=== PATIENT | female | born 1965 | race Caucasian/White ===

== ENCOUNTER → 2017-01-03 | Outpatient (CLI) | payer BC ==
[~2017-01-03] MED LIST: ALBU4TAB10 PO; AMOX500C3 PO; AMOX875T PO; BECL1AER5 NAE; BIOTIN PO; CETI10TA84 PO; CHOL1CAP51 PO; COEN1TAB3 PO; FLUO20CA35 PO; HYDR0.5T PO; MECL1TAB42 PO; MELA1TAB54 PO; MELO15TA3 PO; MISCCAP80 PO; PIRB200A INH; SERT50TA PO; VNTHFA/IN INH; ZOLM1TAB11 PO; [UNRECOGNIZED DRUG - CODE] TD; [UNRECOGNIZED DRUG - OTHER] PO
--- NOTE | 2017-01-03 12:20 | DIAGNOSTIC IMAGING REPORT ---
ULTRASOUND OF THE PELVIS CLINICAL HISTORY: Pelvic pain. COMPARISON STUDY: Pelvic CT dated 09/30/2015. TECHNIQUE: Real-time, grayscale, and color flow sonography of the pelvis is performed both transabdominally and endovaginally. Images are reviewed in the transverse and longitudinal planes. FINDINGS: Uterus: The uterus is surgically absent Ovaries: The ovaries are normal in size and morphology. The right ovary measures 2.6 x 1.0 x 1.6 cm and the left ovary measures 2.6 x 1.0 x 0.9 cm. Normal Doppler waveforms are shown within both ovaries. Pelvis: There is no free fluid in the cul-de-sac. No concerning adnexal lesion is seen. IMPRESSION: 1. The uterus is surgically absent. 2. Unremarkable sonographic assessment of the ovaries. 3. No concerning adnexal lesion is identified. Electronically signed by: Cordell Sanches M.D. 01/03/2017 12:18 PM Dictated Date/Time: 01/03/2017 12:15 PM
== END | disposition home or self-care (01) ==
LOC: C.ULTR 11:21
PROVIDERS: ATTEND Family Medicine
DX: R10.2 Pelvic and perineal pain (principal); Z80.41 Family history of malignant neoplasm of ovary; Z90.710 Acquired absence of both cervix and uterus

== ENCOUNTER → 2017-01-17 | Outpatient (CLI) | payer BC ==
--- NOTE | 2017-01-17 13:57 | MAMMOGRAPHY REPORT ---
BILATERAL DIGITAL SCREENING MAMMOGRAM TOMOSYNTHESIS WITH CAD: 01/17/2017 TECHNIQUE: Breast tomosynthesis in addition to standard 2D mammography was performed. Current study was also evaluated with a Computer Aided Detection (CAD) system. COMPARISON: Comparison is made to exams dated: 12/22/2015 mammogram, 12/17/2013 mammogram, 12/19/2014 mammogram, 12/04/2012 mammogram, 12/02/2011 mammogram, and 11/28/2010 mammogram - [facility] enter. BREAST COMPOSITION: The tissue of both breasts is almost entirely fatty. FINDINGS: No suspicious masses, calcifications, or areas of architectural distortion are noted in e ither breast. There has been no significant interval change compared to prior exams. IMPRESSION: ACR BI-RADS CATEGORY 1: NEGATIVE There is no mammographic evidence of malignancy. A 1 year screening mammogram is recommended. The p atient will receive written notification of the results. Approximately 10% of breast cancers are not detected with mammography. A negative mammographic repor t should not delay biopsy if a clinically suggestive mass is present. Lindsey Kessler M.D. ah/:01/17/2017 12:28:08 Lunchroom Worker: Harriet YE(R)(M), [facility] letter sent: Normal 1/2 BI-RADS Code: ACR BI-RADS Category 1: Negative
== END | disposition home or self-care (01) ==
LOC: C.MAMM 09:34
PROVIDERS: ATTEND Family Medicine
DX: Z12.31 Encounter for screening mammogram for malignant neoplasm of breast (principal)

== ENCOUNTER 2017-06-29 10:24 | Emergency (ER) | payer BC ==
[~2017-06-29] VITALS: Ht 160 cm; Wt 85.1 kg
[~2017-06-29 10:24] MED LIST changes: -AMOX500C3 PO; -AMOX875T PO; -FLUO20CA35 PO; -PIRB200A INH; -VNTHFA/IN INH; -[UNRECOGNIZED DRUG - CODE] TD
[2017-06-29 10:28] VITALS: TEMP 36.7; Ht 160 cm; Wt 85.1 kg
[2017-06-29] MEDS ORDERED: AMOXICILLIN/CLAVULANATE TAB 875 MG TAB PO ONE (11:00)
--- NOTE | 2017-06-29 11:28 | EMERGENCY ROOM VISIT NOTE ---
History Report prepared by Fiordaliza: Marychuy Armenta Under the Supervision of: Dr. Sotero Stern M.D. 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 The patient has two dogs at home. Today her gave the dogs rawhides while the patient was sitting on the couch. The Naye barker jumped up onto the couch and the patient thought that he wanted to be cuddled, so she started to pet him. He became very protective of the rawhide and bit her in multiple places. The patient has a dog bite to the right forearm, right elbow, right breast, and left upper arm. She also has scratches on her legs where he jumped on her. She is complaining of pain that she rates as an 8/10 in severity. The patient has had the dog for 3 years. She got him when he was 9 months old. All of his shots are up to date and he is generally healthy. The patient's tetanus is up to date. She does not take any blood thinners. She does not have any other complaints at this time. She denies neck pain, headache, and abdominal pain. She is currently taking amoxicillin for a root canal. 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 A total of 10 systems reviewed and were otherwise negative. Past Medical & Surgical Medical Problems: (1) ASTHMA, UNSPECIFIED (2) Hysterectomy (3) MIGRAINE UNSPECIFIED W/O INTRACT MGRN W/O STATUS MIGRAINOSUS (4) Removal of ovarian cyst (5) RHEUMATOID ARTHRITIS (6) Umbilical hernia Old medical records were reviewed. Nurse's notes were reviewed and I agree with. Tetanus shot is up-to-date Family History FHx: cancer Social History Smoking Status: Never Smoker Alcohol Use: none Marital Status: Housing Status: lives with family Occupation Status: employed Current/Historical Medications Scheduled Amoxicillin (Amoxil), 500 MG PO BID Amoxicillin & Pot Clavulanate (Augmentin 875-125 mg), 875 MG PO BID Beclomethasone Dipropionate (N (Qnasl), 1 SPRAY MAKAYLA DAILY Cetirizine (Zyrtec), 10 MG PO DAILY Cholecalciferol (Vitamin D3 High Potency), 4,000 UNITS PO DAILY Coenzyme Q10 (Ubidecarenone) (Coenzyme Q10), 100 MG PO BID Hydroxychloroquine Sulfate (Plaquenil), 200 MG PO QD Melatonin (Melatonin), 9 MG PO HS Meloxicam (Mobic), 15 MG PO DAILY Probiotic Product (Probiotic), 1 CAP PO DAILY Eeulgwplph-Pxlrwqdyq-Motlhnjg (Migrelief), 1 TAB PO BID Sertraline (Zoloft), 75 MG PO DAILY Zolmitriptan (Zolmitriptan), 2.5 MG PO Q2h prn [Biotin Tab], 5 MG PO DAILY Scheduled PRN Albuterol Hfa (Ventolin Hfa), 2-4 PUFFS INH Q6H PRN for Shortness of Breath Meclizine Hcl (Meclizine Hcl), 1 TAB PO DAILY PRN for Dizziness or Vertigo Allergies Coded Allergies: Molds & Smuts (Verified Allergy, Mild, other, 06/29/17) chronic fatique Yeast (Verified Allergy, Mild, other, 06/29/17) chronic fatique Benzoyl Peroxide (Verified Allergy, Unknown, 06/29/17) Diphenhydramine (Verified Allergy, Unknown, 06/29/17) Latex (Unverified Allergy, Unknown, UNKNOWN, 06/29/17) Sulfa Drugs (Verified Allergy, Unknown, RASH, 06/29/17) Physical Exam Vital Signs Date Time Temp Pulse Resp B/P (MAP) Pulse Ox O2 Delivery O2 Flow Rate FiO2 06/29/17 12:46 74 21 147/94 99 Room Air 06/29/17 10:28 36.7 55 18 158/102 97 Room Air Physical Exam General: Well developed well nourished non ill appearing middle aged female in no acute distress, breathing comfortably on room air. Normal speech HEENT: Normal cephalic atraumatic. Pupils are equal round and reactive to light. Extraocular movements are intact. Oropharynx is pink with moist mucous membranes. No swelling of the mouth lips or tongue. Neck: Supple with a midline trachea. No meningeal signs or stiffness, no JVD or bruits. No Stridor. Chest: Clear to auscultation bilaterally. No wheezes or rhonchi. No increased work of breathing. Heart: regular rate and rhythm. Abdomen: Soft nontender, nondistended without rebound guarding or rigidity. Extremities: She has a superficial bite on the right forearm and one on the proximal right arm which has a small puncture. Bite on the right breast that is superficial, and the left proximal posterior arm has a puncture wound. Spine/Back. Non tender to palpation. No CVA tenderness Skin: Good turgor without rashes. Neurologic exam: Cranial nerves two through 12 are intact. Motor and sensation are intact and symmetrical throughout. Medical Decision & Procedures Medications Administered Medications (Trade) Dose Ordered Sig/David Route Start Time Stop Time Status Last Admin Dose Admin Amoxicillin/ Clavulanate Potassium (Augmentin Tab) 875 mg ONE ONCE PO 06/29/17 11:00 06/29/17 11:01 DC 06/29/17 11:13 875 MG Bacitracin (Bacitracin Oint) 1 appln NOW ONCE EXT 06/29/17 12:30 06/29/17 12:31 DC 06/29/17 12:30 1 APPLN ED Course 1040: Past medical records reviewed. The patient was evaluated in room A11B, and a complete history and physical examination were performed. 1100: Augmentin 875 mg PO 1221: I reassessed the patient at this time. She is feeling better and resting comfortably. I discussed the results and treatment plan with the patient. I answered all pertaining questions that she had. She expressed understanding and verbalized agreement. The patient will be discharged home. 1230: Bacitracin 1 appln EXT Medical Decision Differential diagnoses includes dog bite, laceration, injury This patient comes in as described above she suffered a dog bite from her dog. The dog is well and this was provoke. The patient has her tetanus booster up-to -date and the dog's rabies vaccines are up-to-date. She has 4 bites and there are superficial. The one near her right elbow is more the most likely a puncture. I do not think it likely involves the joint and it does not appear to be that deep. They do not require any suturing and I think that suturing would be detrimental at this point as it would potentially increase infection. They were cleaned and bacitracin was applied/ I will put the patient Augmentin 875 mg twice a day. She started taking amoxicillin for dental procedure, not I told her that the Augmentin replaces the amoxicillin and will cover both her dental issues as well as any per prophylaxis from the dog bites. She's can have her dog follow-up with a vet and she does feel very comfortable going home. We have filled out the paperwork for the Department of Health for the dog. The patient should return if: redness or fever or worsening of symptoms, any new problems or concerns. She was happy with plan and discharged to home. Medication Reconcilliation Current Medication List: was personally reviewed by me Blood Pressure Screening Patient's blood pressure: Elevated blood pressure Blood pressure disposition: Referred to PCP Impression Primary Impression: Dog bite Scribe Attestation The scribe's documentation has been prepared under my direction and personally reviewed by me in its entirety. I confirm that the note above accurately reflects all work, treatment, procedures, and medical decision making performed by me. Departure Information Dispostion Home / Self-Care Prescriptions Amoxicillin & Pot Clavulanate (Augmentin 875-125 mg) 1 Tab Tab 875 MG PO BID for 7 Days, #14 TAB Prov: Sotero Stern M.D. 06/29/17 Referrals Leroy Luke M.D. (PCP) Forms HOME CARE DOCUMENTATION FORM, IMPORTANT VISIT INFORMATION Patient Instructions [facility] Additional Instructions Rest. Drink plenty of fluids. Use Augmentin 875 mg twice a day for 7 daysantibiotic that replaces amoxicillin Return if: Redness or pus drainage, increasing pain or swelling around the sites , any new problems or concerns Follow-up with your doctor in 1-2 days for recheck Problem Qualifiers Primary Impression: Dog bite Encounter type: initial encounter Qualified Codes: W54.0XXA - Bitten by dog , initial encounter
[2017-06-29] MEDS ORDERED: AMOX500C3 PO (11:37)
[2017-06-29] MEDS ORDERED: VNTHFA/IN INH (11:37)
[2017-06-29] MEDS ORDERED: AMOX875T PO (12:28)
[2017-06-29] MEDS ORDERED: BACITRACIN OINT 15 GM TUBE EXT ONE (12:30)
[2017-06-29 12:46] VITALS: BP 147/94; PULSE 74; O2SAT 99
[2017-08-15] MEDS ORDERED: [UNRECOGNIZED DRUG - CODE] TD (09:06)
[2017-08-15] MEDS ORDERED: FLUO20CA35 PO (09:06)
== END 2017-06-29 12:45 | disposition home or self-care (01) ==
LOC: C.EDB 10:25 → C.EDA 12:45
DX: S51.851A Open bite of right forearm, initial encounter (principal); S51.051A Open bite, right elbow, initial encounter; S41.152A Open bite of left upper arm, initial encounter; S21.051A Open bite of right breast, initial encounter; W54.0XXA Bitten by dog, initial encounter; M06.9 Rheumatoid arthritis, unspecified; Z90.710 Acquired absence of both cervix and uterus; Z79.899 Other long term (current) drug therapy

== ENCOUNTER → 2017-07-31 | Outpatient (CLI) | payer BC ==
[~2017-07-31] MED LIST changes: -ALBU4TAB10 PO; +AMOX500C3 PO; +FLUO20CA35 PO; +VNTHFA/IN INH; +[UNRECOGNIZED DRUG - CODE] TD
--- NOTE | 2017-07-31 09:55 | DIAGNOSTIC IMAGING REPORT ---
RIGHT HAND MIN 3 VIEWS ROUTINE, LEFT HAND MIN 3 VIEWS ROUTINE HISTORY: 52 years-old Female M05.79 Right bilateral hand pain without reported trauma. COMPARISON: None available. TECHNIQUE: 3 views of the bilateral hands for a total of 6 images. FINDINGS: RIGHT: No acute fracture, dislocation or significant degenerative changes. Middle phalanx is congenitally diminutive in size, which can be associated with chromosomal abnormalities. Moderate first carpometacarpal with diffuse mild metacarpophalangeal and interphalangeal osteoarthritis is noted. There is mild degenerative changes about the distal radioulnar joint. Soft tissues are unremarkable. LEFT: There is no acute fracture or dislocation. Moderate first carpal metacarpal and multidigit mild metacarpal phalangeal and interphalangeal osteoarthritis noted. 5 mm corticated bone fragment is seen lateral to the radial styloid suggesting remote fracture or accessory ossicle. The middle phalanx is diminutive in size, which can be associated with chromosomal abnormalities. No opaque foreign body. IMPRESSION: 1. No acute fracture or dislocation of either hand. 2. 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 3. Degenerative changes about the carpometacarpal, metacarpophalangeal and interphalangeal joints as above The above report was generated using voice recognition software. It may contain grammatical, syntax or spelling errors. Electronically signed by: Andres Robison M.D. 07/31/2017 9:54 AM Dictated Date/Time: 07/31/2017 9:50 AM
== END | disposition home or self-care (01) ==
LOC: C.RAD1850 09:37
PROVIDERS: ATTEND Internal Medicine
DX: M05.79 Rheumatoid arthritis with rheumatoid factor of multiple sites without organ or systems involvement (principal)

== ENCOUNTER → 2018-02-10 | Outpatient (CLI) | payer OTHER ==
[~2018-02-10] MED LIST changes: -AMOX500C3 PO; -SERT50TA PO; +[UNRECOGNIZED DRUG - CODE] TD; -[UNRECOGNIZED DRUG - CODE] TD
--- NOTE | 2018-02-10 14:58 | MAMMOGRAPHY REPORT ---
BILATERAL DIGITAL SCREENING MAMMOGRAM TOMOSYNTHESIS WITH CAD: 02/10/2018 CLINICAL HISTORY: Routine screening. Patient has no complaints. TECHNIQUE: Breast tomosynthesis in addition to standard 2D mammography was performed. Current study was also evaluated with a Computer Aided Detection (CAD) system. COMPARISON: Comparison is made to exams dated: 01/17/2017 mammogram, 12/22/2015 mammogram, 12/19/2014 m ammogram, 12/17/2013 mammogram, 12/04/2012 mammogram, and 12/02/2011 mammogram - [facility] nter. BREAST COMPOSITION: The tissue of both breasts is almost entirely fatty. FINDINGS: No suspicious masses, calcifications, or areas of architectural distortion are noted in ei ther breast. There has been no significant interval change compared to prior exams. A few small sj gn oil cysts are seen within the right upper outer anterior breast. IMPRESSION: ACR BI-RADS CATEGORY 2: BENIGN There is no mammographic evidence of malignancy. A 1 year screening mammogram is recommended. The pa tient will receive written notification of the results. Approximately 10% of breast cancers are not detected with mammography. A negative mammographic report should not delay biopsy if a clinically suggestive mass is present. Lindsey Kessler M.D. /:02/10/2018 07:47:19 Meter Tester Polyphase: Harriet PINEDA)(M), [facility] letter sent: Normal 1/2 BI-RADS Code: ACR BI-RADS Category 2: Benign
== END | disposition home or self-care (01) ==
LOC: C.MAMM 07:31
PROVIDERS: ATTEND Obstetrics & Gynecology
DX: Z12.31 Encounter for screening mammogram for malignant neoplasm of breast (principal)

== ENCOUNTER 2024-11-09 04:59 | Observation (INO) ==
--- NOTE | 2024-10-11 11:11 | PAT Medication Instructions ---
Medication Instructions Date of Service October 11, 2024 Home Medications Medication Instructions Recorded fremanezumab-vfrm 225 mg/1.5 mL 225 mg (1.5 mL) subcut MONTHLY 30 03/31/24 subcutaneous syringe ([employer] days #1.5 mL Syringe) cholecalciferol (vitamin D3) 50 mcg (2,000 unit) capsule 5,000 units PO DAILY doxycycline hyclate 50 mg capsule 50 mg PO HS folic acid 1 mg tablet 1 mg PO DAILY alendronate 70 mg tablet 70 mg PO WK meloxicam 15 mg tablet 15 mg PO QAM methotrexate sodium 25 mg/mL injection solution 15 mg subcut WK fluoxetine 20 mg capsule 20 mg PO QAM cetirizine 10 mg tablet 10 mg PO QPM fremanezumab-vfrm 225 mg/1.5 mL subcutaneous syringe (H[employer]es IQ[employer] Syringe) 225 mg (1.5 mL) subcut MONTHLY losartan 50 mg tablet 50 mg PO BID Magnesium + Vitamin B2 1 dose PO QPM acetaminophen 500 mg capsule 1,000 mg PO QID PRN carboxymethylcellulose sodium 0.5 % eye drops (Refresh Tears) 1 drp ophthalmic (eye) UD PRN clotrimazole-betamethasone 1 %-0.05 % topical cream 1 applic topical UD PRN lactobacillus combination no.4 3 billion cell capsule (Probiotic) 0 mmu cells PO QAM metronidazole 0.75 % topical cream 1 applic topical DAILY ondansetron 4 mg disintegrating tablet 4 mg PO UD PRN triamcinolone acetonide 55 mcg/actuation nasal spray,aerosol 55 mcg intranasal DAILY turmeric 900 mg-turmeric root extract 100 mg-black pepper 5 mg capsule 1 cap PO DAILY ubrogepant 100 mg tablet (Ubrelvy) 100 mg PO UD PRN STOP 7 days before surgery, check if prescribing provider is okay with change for surgery methotrexate sodium 25 mg/mL injection solution 15 mg subcut WK Continue as directed fremanezumab-vfrm 225 mg/1.5 mL subcutaneous syringe (Ajovy Syringe) 225 mg (1.5 mL) subcut MONTHL carboxymethylcellulose sodium 0.5 % eye drops (Refresh Tears) 1 drp ophthalmic (eye) UD PRN(if needed) ondansetron 4 mg disintegrating tablet 4 mg PO UD PRN(if needed) triamcinolone acetonide 55 mcg/actuation nasal spray,aerosol 55 mcg intranasal DAILY ubrogepant 100 mg tablet (Ubrelvy) 100 mg PO UD PRN(if needed) ASK your surgeon for instructions meloxicam 15 mg tablet 15 mg PO QAM STOP taking 2 weeks before surgery (or as soon as possible if surgery is within 2 weeks) turmeric 900 mg-turmeric root extract 100 mg-black pepper 5 mg capsule 1 cap PO DAILY STOP taking 24 hours before surgery clotrimazole-betamethasone 1 %-0.05 % topical cream 1 applic topical UD PRN metronidazole 0.75 % topical cream 1 applic topical DAILY DO NOT take the morning of surgery cholecalciferol (vitamin D3) 50 mcg (2,000 unit) capsule 5,000 units PO DAILY folic acid 1 mg tablet 1 mg PO DAILY alendronate 70 mg tablet 70 mg PO WK losartan 50 mg tablet 50 mg PO BID lactobacillus combination no.4 3 billion cell capsule (Probiotic) 0 mmu cells PO QAM Take morning of surgery With a small sip of water, OTHERWISE NOTHING TO EAT OR DRINK AFTER MIDNIGHT: fluoxetine 20 mg capsule 20 mg PO QAM acetaminophen 500 mg capsule 1,000 mg PO QID PRN(if needed) Take evening before surgery doxycycline hyclate 50 mg capsule 50 mg PO HS cetirizine 10 mg tablet 10 mg PO QPM losartan 50 mg tablet 50 mg PO BID Magnesium + Vitamin B2 1 dose PO QPM acetaminophen 500 mg capsule 1,000 mg PO QID PRN(if needed) Other Notes If you have any questions please call us at [phone] or [phone] or [phone] or [phone]
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
[2024-11-09] MEDS: LR 15ML/HR IV SCH (05:58)
[2024-11-09] MEDS: CeleBREX 200 MG CAP PO SCH (06:07)
[2024-11-09] MEDS: LR 60ML/HR IV SCH (06:07)
[2024-11-09] MEDS: Scopolamine 1 MG TDSY TD SCH (06:08)
[2024-11-09] MEDS: ACETAMINOPHEN 500 MG TAB PO SCH ×2 (06:13→13:37)
[2024-11-09] MEDS ORDERED: LIDOCAINE 2% 2 ML VIAL/AMP(20MG/ML) INFIL ONE (06:21)
[2024-11-09] MEDS ORDERED: MIDAZOLAM HCL 1 MG/ML 2ML VIAL ONE (06:21)
[2024-11-09] MEDS ORDERED: fentaNYL citrate PF 100 MCG/2 ML VIAL ONE (06:21)
[2024-11-09] MEDS ORDERED: PROPOFOL IV EMULSION 10 MG/ML 20 ML VIAL IV ONE (06:21)
[2024-11-09] MEDS ORDERED: ROCURONIUM BROMIDE 10 MG/ML 5 ML VIAL IV ONE ×3 (06:21→09:01)
[2024-11-09] MEDS ORDERED: BUPIVACAINE 0.5 % 5 MG/1 ML PF 10ML VIAL ONE (06:23)
[2024-11-09] MEDS ORDERED: ePHEDrine sulfate 50 MG/ML AMP IV PRN (06:35)
[2024-11-09] MEDS ORDERED: DROPERIDOL 5 MG/2 ML VIAL IV PRN (06:35)
[2024-11-09] MEDS ORDERED: fentaNYL citrate PF 100 MCG/2 ML VIAL IV PRN (06:35)
[2024-11-09] MEDS ORDERED: ATROPINE SULFATE 0.1 MG/ML 10ML SYR IV PRN (06:35)
--- NOTE | 2024-11-09 06:37 | History & Physical Bridge Note ---
Date of Service November 09, 2024 History & Physical Bridge Note I have examined the patient, reviewed the History & Physical and in the interval since the performance of the History & Physical I have noted the following changes of clinical significance: no changes noted
[2024-11-09] MEDS: TRANEXAMIC ACID 1,000 MG **IV Pre-op IV SCH (06:44)
[2024-11-09] MEDS: ceFAZolin 2000MG 2,000 MG/15 ML SYR IV SCH ×2 (07:50→17:31)
[2024-11-09] MEDS ORDERED: ePHEDrine sulfate 50 MG/ML AMP ONE (08:07)
[2024-11-09] MEDS ORDERED: PHENYLEPHRINE HCL 10 MG/ML VIAL ONE (08:23)
[2024-11-09] MEDS ORDERED: DEXAMETHASONE SOD INJ 4 MG/ML VIAL ONE (08:59)
[2024-11-09] MEDS ORDERED: ONDANSETRON INJ 2 MG/ML 2 ML VIAL ONE (08:59)
--- OUTSIDE RECORDS SUMMARY | 2024-11-09 09:45 | External Medical Summary | Summary of Care ---
Author Name Unknown Organization [facility] Address [address] [facility] [place] [address] Phone [phone] Care Team Providers Care Spotter Driver Name Role Phone Christian Pace MD Primary Care Provid er Encounter Details Date Type Department Care Team (Late st Contact Info) Description 11/08/2024 Orders Only Rheumatology [place] Roselyn Zamora [address] [place] [place] [address] Austin Vazquez PA-Cedric [address] [facility], [place] [address] Allergies Active Allergy Reactions Criticality Noted Date Comments Amitriptyline 03/19/2023 Other reaction(s): extremely tired at just 10 mg qhs Benzoyl Peroxide 09/20/2022 Diphenhydramine Hcl Tachycardia 09/25/2007 Dust 03/19/2023 Other reaction(s): congestion, sneezing, Estradiol 03/19/2023 Other reaction(s): rash, + blistered, non itchy Lamotrigine 09/20/2022 Other reaction(s): excessive tearfulness, nausea, insomnia, emotional Latex Rash 10/04/2011 swelling Nadolol 09/20/2022 Other reaction(s): Drowsy, tired all the time Onabotulinumtoxina 03/19/2023 Other reaction(s): fatigue x weeks, eye swelling Other Allergy (See Comments) Rash 011 Benzyl Peroxide Causes swelling and rash Hydroxychloroquine 12/20/2019 hyperpigmentation Sulfa Antibiotics 08/16/2013 Sore throat and hives Sumatriptan 03/19/2023 Other reaction(s): chest pain Topiramate 09/20/2022 Other reaction(s): mental fuzziness; didn't help migraines Yeast 04/10/2015 Zonisamide 09/20/2022 documented as of this encounter (statuses as of 11/08/2024) Medications VITAMIN D 1000 UNITS PO CAPS 4 daily Active FLUoxetine (PROZAC) 20 MG Capsule Take 2 Capsules by mouth in the morning. 1 at bedtime. 2 8 Active Albuterol Sulfate 108 (90 Base) MCG/ACT AEPB Inhale by mouth. 2 puffs every 4 hr as needed Active Lactobacillus-In ulin ([facility] [employer] [facility]) CAPS Take by mouth. 1 daily Active metroNIDAZOLE, topical, (METROCREAM) 0.75 % cream Twice daily 3 8 Active doxycycline hyclate (VIBRAMYCIN) 50 MG Capsule 1 Capsule. 1 tab daily 0 Active Ajovy 225 MG/1.5ML Subcutaneous Solution Prefilled Syringe INJECT 675MG (4.5ML) UNDER SKIN EVERY THREE MONTH 0 Active Cetirizine HCl 10 MG Oral Tablet (ZyrTEC) Take 1 Tablet by mouth in the morning and 1 Tablet before bedtime. Active Folic Acid 1 MG Oral TabletIndication s:Rheumatoid arthritis involving multiple sites with positive rheumatoid factor (HCC) Take 2 Tabs by mouth daily. 180 Tab 4 0 Active Alendronate Sodium 70 MG Oral Tablet Take 1 Tablet by mouth once a week. Active Acetaminophen 500 MG Oral Tablet Take 1 Tablet by mouth every 6 hours as needed. Active Turmeric 500 MG Oral Tablet Take by mouth. Act georgette Ubrelvy 100 MG Oral Tablet 4 Active Lotrisone 1-0.05 % External Cream Start: 10/22/23 13:57:00 EST, 1 appl, topical, bid, Disp# 15 g, Refills: 1, Mix with equal amounts of Aquaphor and apply BID Not to be used longer than 2 weeks, Pharmacy: [facility]/pharmacy #[id number] 3 Active Mag Mal-Vit B6-Pot Cit-Taurine 50-1-25-175 MG Oral Tablet Take by mouth. Act georgette Meloxicam 15 MG Oral Tablet (Mobic)Indicatio ns:Rheumatoid arthritis involving multiple sites with positive rheumatoid factor (HCC) Take 1 Tablet by mouth in the morning. With food. 90 Tablet 3 4 Active 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 Sodium 50 MG/2ML Injection SolutionIndicati ons:Rheumatoid arthritis involving multiple sites with positive rheumatoid factor (HCC) Inject 15 mg (0.6 ml) under the skin once a week. 12 mL 3 06/14/2024 1:35 PM EDT 4 Active BD TB Syringe 27G X 1/2" 1 ML (Tuberculin Syringe)Indicati ons:Rheumatoid arthritis involving multiple sites with positive rheumatoid factor (HCC) USE TO INJECT 0.6 ML OF METHOTREXATE UNDERNEATH SKIN ONCE A WEEK 52 Each 06/08/2024 3:47 PM EDT 4 Active Cefdinir 300 MG Oral Capsule (Omnicef) 1 twice daily 4 Active documented as of this encounter (statuses as of 11/08/2024) Active Problems Problem Noted Date Diagnosed Date HTN, goal below 130/80 12/23/2023 Encounter for long-term (current) use of medicat ions 12/30/2022 Migraine headache 04/26/2020 Rosacea 04/26/2020 Rheumatoid arthritis of [facility] sites with negative rheumatoid factor 04/12/2016 Asthma with severity to be determined 05/01/2004 Overview (03/04/2016): ICD-10 update of inactive term Allergic rhinitis 05/01/2004 documented as of this encounter (statuses as of 11/08/2024) Resolved Problems Problem Noted Date Diagnosed Date Resolved Date Rheumatoid arthritis involvi ng multiple sites with positive rheumatoid factor 12/30/2022 12/23/19 24 ARTHRITIS,RHEUMATOID 10/04/2011 016 JUV RHEUM ARTHRITIS NOS 05/01/2004 03/0 12/2017 documented as of this encounter (statuses as of 11/08/2024) Immunizations Name Administration Dates Next Due COVID-19, MRNA-LNP, PF, 50 M CG/0.5 mL, 12 YRS AND ABOVE, IM (MODERNA-Spikevax) 09/05/2023 Covid-19 Ad26, Single Dose (Meño/J&J) 03/03/2021 Covid-19, Mrna, Lnp-s, Pf, B ivalent, 30 Mcg, IM, 12 yrs and above (Pfizer) 07/05/2022 Pneumococcal Polysaccharide PPV23 (Pneumovax) 10/17/2014 Seasonal Influenza Vac., MDV , IM, 0.5 mL (Fluzone) 09/09/2016,08/13/2015,08/02/2014,08/16,10/13/2012 Seasonal Influenza Virus Vac cine, Unspecified Formulation 09/28/2024 Seasonal Influenza, Quad, Na ken (Flumist) 09/02/2018 Seasonal Influenza, Quadrivalent, ID 09/05/2023 Seasonal Influenza, Quadriva lent, No Preserve, IM 08/25/2017 documented as of this encounter Social History Tobacco Use Types Packs/Day Years Used Date Smoking Tobacco: Never Smokeless Tobacco: Never Alcohol Use Standard Drinks/Week Comments No 0 (1 standard drink = 0.6 oz pur e alcohol) Utilities Answer Date Recorded Do you have trouble paying y our heating, water, or electric bill? (Adult - for ages 18 years and over) Not on file 05/11/2024 Is your family able to pay t he heat, water, or electric bill? (Household - for ages 0-17 years) Not on file 05/11/2024 Does your family have access to good internet? (Household - for ages 0-17 years) Not on file 05/11/2024 Social Connections Answer Date Recorded How often do you feel lonely or isolated from those around you? 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 on file Not on file Not on file assoc at [facility] Not on file Not on file Not on file documented as of this encounter Plan of Treatment Upcoming Encounters Date Type Department Care Team (Late st Contact Info) Description 01/13/2025 10:30 AM EST [facility] [address] [place] [address] Austin Vazquez PA-C [address] [place] [address] Health Maintenance Due Date Last Done Comments Lipid Panel 1963 Depression Screening 1975 HIV Screening 1978 Albumin/Creatinine Ratio 1981 Hepatitis C Screening 1981 Pap Smear 1984 Cervical Cancer Screening 1993 HPV/Co-Test 1993 Mammogram 2003 Cologuard 2008 Colonoscopy 2008 Colorectal Cancer Screening 2008 Fecal Occult Blood Test 2008 Sigmoidoscopy 2008 DTap/Tdap Vaccines (1 - Tdap) 12/19/2015 12/18/2015 Pneumococcal Vaccine: Pediatrics (0 to 5 Years) and At-Risk Patients (6 to 64 Years) (3 of 3 - PCV) 01/27/2019 01/27/2018, 02/07/2016, 10/17/2014 *SPIROMETRY ONCE FOR ASTHMA-ADULT 10/17/2022 COVID-19 Vaccine ( - season) 2024 09/05/2023, 07/05/2022, 03/03/2021 GFR 10/13/2025 10/13/2024, 04/24, 12/23/2023, Additional history exists Zoster Vaccines Completed 10/18/2022, 01/12/2020 Influenza Vaccine (FLU shot) Completed 03/2024, 09/05/2023, 09/04/2022, Additional history exists HPV (Gardasil) Vaccine Aged Out No lo nger eligible based on patient's age to complete this topic Hepatitis B Vaccine Aged Out No longe r eligible based on patient's age to complete this topic MENINGOCOCCAL (MENACTRA/MENVEO) Aged Out No longer eligible based on patient's age to complete this topic documented as of this encounter Medical Devices Not on filedocumented as of this encounter Procedures Procedure Name Priority Date/Time Associated Diagnosis Comments CHEMISTRY-OUTSIDE Routine 10/13/2024 documented in this encounter Results * CHEMISTRY-OUTSIDE (10/13/2024) Not all results display below - see scan for full detail OUTSIDE LAB (SEE SCANNED REPORT) Comment:SCAN INCLUDES - CMP, CBCD CREATININE 0.85 0.60 - 1.00 MG/DL OUTSIDE LAB (SEE SCANNED REPORT) EGFR 78 >60 ML/MIN OUTSIDE L AB (SEE SCANNED REPORT) POTASSIUM 4.6 3.5 - 5.1 MMOL/L OUTSIDE LAB (SEE SCANNED REPORT) GLUCOSE 95 74 - 106 MG/DL OUTSIDE LAB (SEE SCANNED REPORT) HOURS FASTING OUTSID E LAB (SEE SCANNED REPORT) TRIGLYCERIDES-OUT SIDE LAB OUTSIDE LAB (SEE SCANNED REPORT) CHOLESTEROL-OUTSI DE LAB OUTSIDE LAB (SEE SCANNED REPORT) HDL-OUTSIDE LAB OUTS [facility] (SEE SCANNED REPORT) CHOL/HDL RATIO-OUTSIDE LAB OUTSIDE LA B (SEE SCANNED REPORT) LDL (CALCULATED)-OUTS [facility] OUTSIDE LAB (SEE SCANNED REPORT) LDL (DIRECT MEASURE)-OUTSIDE LAB OUTSIDE LAB (SEE SCANNED REPORT) HEMOGLOBIN, S3E-FUFPOYR LAB OUTSIDE LAB (SEE SCANNED REPORT) PHOSPHORUS-OUTSID E LAB OUTSIDE LAB (SEE SCANNED REPORT) PTH-OUTSIDE LAB OUTS [facility] (SEE SCANNED REPORT) MICROALBUMIN RATIO-OUTSIDE LAB OUTSIDE LA B (SEE SCANNED REPORT) PROTEIN, UA-OUTSIDE LAB OUTSIDE LAB (SEE SCANNED REPORT) HGB 14.4 11.7 - 15.0 G/DL OUTSIDE LAB (SEE SCANNED REPORT) 10/13/2024 us Austin Vazquez PA-C LABORATORY Final Resu lt OUTSIDE LAB (SEE SCANNED REPORT) documented in this encounter Care Teams Spotter Driver Relationship Specialty Start Date End Date Christian Pace MD [address] [facility] [address] [place] [address] PCP - General 05/01/04 documented as of this encounter
--- OUTSIDE RECORDS SUMMARY | 2024-11-09 09:45 | External Medical Summary | Summary of Care ---
Author Name Unknown Organization [facility] Address [address] [facility] [place] [address] Phone [phone] Care Team Providers Care Bath Steward/Stewardess Name Role Phone Christian Pace MD Primary Care Provid er Reason for Visit * Reason Onset Date Comments Medication Question 10/13/2024 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 Encounter Details Date Type Department Care Team (Late st Contact Info) Description 10/13/2024 Telephone Rheumatology [facility] [address] [place] [address] Austin Vazquez PA-C [address] [place] [address] Medication Question (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) Allergies Active Allergy Reactions Criticality Noted Date [...] as of this encounter (statuses as of 10/14/2024) Medications VITAMIN D 1000 UNITS PO CAPS 4 daily Active FLUoxetine (PROZAC) 20 MG Capsule Take 2 Capsules by mouth in the morning. 1 at bedtime. 2 8 Active Albuterol Sulfate 108 (90 Base) MCG/ACT AEPB Inhale by mouth. 2 puffs every 4 hr as needed Active Lactobacillus-In ulin ([facility] [employer] [facility]) CAPS Take by mouth. 1 daily Active [...] be used longer than 2 weeks, Pharmacy: [facility]/pharmacy #[id number] 3 Active Mag Mal-Vit B6-Pot Cit-Taurine [...] as of this encounter (statuses as of 10/14/2024) Active Problems Problem Noted Date Diagnosed Date HTN, goal below 130/80 12/23/2023 Encounter for long-term (current) use of medicat ions 12/30/2022 Migraine headache 04/26/2020 Rosacea 04/26/2020 Rheumatoid arthritis of [facility] sites with negative rheumatoid factor 04/12/2016 Asthma with severity to be determined 05/01/2004 Overview (03/04/2016): ICD-10 update of inactive term Allergic rhinitis 05/01/2004 documented as of this encounter (statuses as of 10/14/2024) Resolved Problems Problem Noted Date Diagnosed Date Resolved Date Rheumatoid arthritis involvi ng multiple sites with positive rheumatoid factor 12/30/2022 12/23/19 24 ARTHRITIS,RHEUMATOID 10/04/2011 016 JUV RHEUM ARTHRITIS NOS 05/01/2004/12/2017 documented as of this encounter (statuses as of 10/14/2024) Immunizations Name Administration Dates Next Due COVID-19, [...] on file Not on file assoc at [place] Not on file Not on file Not on file documented as of this encounter Miscellaneous Notes * Telephone Encounter - Jose John LPN - 10/14/2024 3:34 PM EST Message given to pt, verbalized understanding * Telephone Encounter - Austin Vazquez PA-C - 10/13/2024 12:59 PM EST She can hold dose week prior to surgery then restart after surgery as long as not having any infection concerns. * Telephone Encounter - Leonie Hernández OSA - 10/13/2024 10:57 AM EST [place] - Patient Related Communication Reason for Call: Medication question/side effect (Physician): pt called to speak to Austin about her medication: 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 Scheduled for shoulder for 24 and needs to know when to stop medication and when to restart. Pt was to have surgery this month and went off med and is starting to have pain. MONIK Love documented in this encounter Plan of Treatment Upcoming Encounters Date Type Department Care Team (Late st Contact Info) Description 01/13/2025 10:30 AM EST Office Visit Rheumatology [facility] [address] [place] [address] Austin Vazquez PA-C [address] [place] [address] Health Maintenance Due Date Last Done Comments [...] *SPIROMETRY ONCE FOR ASTHMA-ADULT 10/17/2022 COVID-19 Vaccine (2023- season) 2024 09/05/2023, 07/05/2022, 03/03/2021 GFR 05/12/2025 05/12/2024, 11/26, 03/31/2023, Additional history exists Zoster Vaccines Completed 10/18/2022, [...] Not on filedocumented as of this encounter Care Teams Bath Steward/Stewardess Relationship Specialty Start Date End Date Christian Pace MD [address] [place] [address] PCP - General 05/01/04 documented as of this encounter
--- OUTSIDE RECORDS SUMMARY | 2024-11-09 09:45 | External Medical Summary | Continuity of Care Document ---
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 hands Paroxysmal dyspnea Plantar wart RHEUMATOID ARTHRITIS Rheumatoid arthritis, unspecified Right carpal tunnel syndrome Rosacea VERTIGO Weight disorder Resolved Abdominal pain Acute maxillary sinusitis Acute sinusitis Chest tightness DERMATOPHYTOSIS OF FOOT Elevated blood pressure reading External otitis of left ear Inflammation of sacroiliac joint NOS OBESITY, UNSPECIFIED PUD - Peptic ulcer disease Spider bite Topiramate Procedure/Surgical History Mammogram| Service Date: 4DEXA| Service Date: 4Colonoscopy| Service Date: 03/26/2023MRI of brain| Service Date: 10/16/2021Mammogram| Service Date: 10/12/2021EXA of hip and spine| Service Date: 1Left shoulder X-ray| Service Date: 11/27/2020Mammogram| Service Date: 04/27/2019Mammogram - screening| Service Date: 04/09/2019Colonoscopy| ServiceDate: 03/10/2018Mammogram| Service Date: 02/10/2018Injection| Service Date: 11/25/2017Plain x-ray of hand| Service Date: 07/31/2017Examination of eye| Service Date: 02/24/2017Procedure| Service Date: 01/17/2017Ultrasound scan of pelvis| Service Date: 01/03/2017Injection of botulinum toxin| Service Date: 2016Injection of botulinum toxin| Service Date: 01/01/2016Spine X- ray| Service Date: 10/06/2015Injection of botulinum toxin| Service Date: 06/23/2015botox for migraine| Service Date: 03/24/2015Procedure| Service Date: 12/23/2014Mammogram| Service Date: 12/19/2014Injection of botulinum toxin| Service Date: 08/2014Papanicolaou smear| Service Date: 05/20/2014Injection| Service Date: 12/20/2013Mammogram - screening| Service Date: 12/17/2013Colonoscopy| Service Date: 03/08/2013rain MRI| Service Date: 03/04/2013Hepatobiliary Scan with Gallbladder ejection Fraction| Service Date: 02/16/2013mammogram - [facility]| Service Date: 09/2013laparotomy for ruptured ovarian cystumbilical hernia repairVaginal hysteroctomy forprolapse, and bladder suspensionoral surgery Medications acetaminophen(Acetaminophen Extra Strength Gelcaps) alendronate(alendronate 70 mg oral tablet), 1 tab, PO, q7days betamethasone-clotrimazole topical(Lotrisone 1%-0.05% topical cream), 1 appl, topical, bid, 1 refills cetirizine, PRN cholecalciferol(Vitamin D3), 4000 Int_Unit, PO, Daily doxycycline(doxycycline hyclate 50 mg oral capsule), 50 mg= 1 cap, PO, Daily, 3 refills FLUoxetine(FLUoxetine 20 mg oral capsule), 1 cap, PO, Daily folic acid(folic acid 1 mg oral tablet), 1 mg= 1 tab, PO, Daily fremanezumab(Ajovy 225 mg/1.5 mL subcutaneous solution) hydroCHLOROthiazide(hydroCHLOROthiazide 12.5 mg oral capsule), 1 cap, PO, Daily lactobacillus rhamnosus GG(Culturelle HS oral capsule), 1 cap, PO, Daily losartan(losartan 50 mg oral tablet), 1 tab, PO, bid meloxicam(Mobic 15 mg oral tablet), 15 mg= 1 tab, PO, Daily methotrexate(methotrexate 1 g injection), 50 mg/2ml, subQ, q7days metroNIDAZOLE topical(MetroCream 0.75% topical cream), 1 appl, topical, bid, 5 refills triamcinolone nasal(Nasacort Allergy 24HR) turmeric ubrogepant(Ubrelvy 50 mg oral tablet) unlisted medication(Mgnesium G/ Vit b2/ Ribo) Allergies Allergy Not found in [place] production of yeast growth Benadrylheart races Botoxfatigue x weeks, eye swelling Dustcongestion, sneezing, Estradiol Patchrash, + blistered, non itchy Latexswelling Moldcongestion, sneezing Plaquenilskin color changes SUMAtriptanchest pain amitriptylineextremely tired lamoTRIgineexcessive tearfulness nadololtired all the time sulfa drugsglands swell, throat scratchy, rash topiramatemental fuzziness; didn't help migraines Social History Smoking Status Never smoked cigarettes Alcohol - No Risk Use:Current Type:Wine Maximum drinks per episode in last year:0.5 - Comments: rare Employment/School - No Risk Status:Unemployed Description:disabled due to migraines and agoraphobia Exercise Duration (average number of minutes):75 Times per week:5-6 times/week Exercise type:Yoga, outside work Home/Environment - No Risk Lives with:Spouse Living situation:Home/Independent Tobacco - Denies Tobacco Use Use:Never smoker Family History Anorexia: Daughter. Bladder cancer..: Father. CAD - Coronary artery disease: Mother and Father. Cancer of colon: Mother (Dx at 75 years) and PGM (Dx at 58 years). Cholecystectomy: Mother and Father. Cigarette smoker: Mother. Diabetes: Mother and Father. Graves' disease: Mother. Heart Failure: Father. High Blood Pressure: Father. Hypothyroidism: Sister. Kidney disease: Brother. Lung cancer..: Mother. Ovarian cancer..: Mother (Dx at 35 years). Psoriatic arthritis: Mother. Stroke: Daughter (Dx at 29 years). Thyroid disease: Sister. Health Status Family Member(s) Family Member(s) Relationship: Father, Name: Issac, Age: 75 Years, Cause: CHF Immunizations Vaccine Date Status influenza virus vaccine, inactivated 09/28/2024 Recorded SARS COVID Vaccine Unspecified 09/28/2024 Recorded zoster vaccine, inactivated 10/18/2022 Recorded Comments : 2023-02-13: Historical information-source unspecified influenza virus vaccine, inactivated 09/04/2022 Recorded SARS-CoV-2 mRNA-1273 (6y+ bivalent) 09/04/2022 Recorded Comments : 2022-10-11: Historical information-source unspecified SARS-CoV-2 mRNA (Pfizer 12+) bivalent 07/05/2022 Recorded Comments : 2022-10-11: Historical information-source unspecified SARS-CoV-2 (COVID-19) mRNA-1273 vaccine 10/12/2021 Recorded Comments : 2022-01-28: Historical information-source unspecified influenza virus vaccine, inactivated 10/01/2021 Given SARS-CoV-2 (COVID-19) Ad26 vaccine 03/03/2021 Recorded Comments : 2021-03-28: Historical information-source unspecified influenza virus vaccine, inactivated 08/2020 Recorded zoster vaccine, inactivated 01/12/2020 Recorded Comments : [facility] pharmacy influenza virus vaccine, inactivated 08/18/2019 Given influenza virus vaccine, inactivated 09/17/2018 Given pneumococcal 23-valent vaccine 01/27/2018 Recorded Comments : 2020-11-27: Historical information-source unspecified influenza virus vaccine, inactivated 08/13/2017 Given influenza virus vaccine, inactivated 09/11/2016 Recorded pneumococcal 23-valent vaccine 02/07/2016 Recorded tetanus toxoids-diphtheria, Td (Adult) 12/18/2015 Given influenza virus vaccine, inactivated 09/18/2015 Given pneumococcal 23-valent vaccine 10/17/2014 Recorded Comments : 2020-11-27: Historical information-source unspecified influenza virus vaccine, inactivated 08/22/2014 Given influenza virus vaccine, inactivated 08/16/2013 Recorded influenza virus vaccine, inactivated 09/30/2012 Recorded tetanus/diphtheria/pertuss, acel (Tdap) 10/01/2005 Recorded measles/mumps/rubella virus vaccine 01/13/1997 Recorded Recommendations Health Maintenance Pending(in the next year) Due Adult COVID-19 Vaccination due10/25/24Unknown Frequency Adult Social Determinants of Health Screening due10/25/24Unknown Frequency Cervical Cancer Screening due10/25/24Unknown Frequency Lipid Screening due10/25/24Unknown Frequency Pneumococcal Vaccine Adults and Adolescents with Chronic Illness due10/25/24One-time only Due In Future Adult Influenza Vaccine not due until06/30/25and every 1year Body Mass Index not due until10/14/25and every 366day Satisfied(in the past 1 year) Satisfied Adult Influenza Vaccine on09/28/24.Satisfied by PRIYA Lyon Paul Body Mass Index on10/25/24.Satisfied by PRIYA Fernandes Vanessa T Breast Cancer Screening on04/12/24.Satisfied by AMBROSE Cisse Lynnae Electronic Signature on File Electronically Reviewed/Signed by: Genesis Roa PA-C Author Signature Dt/Tm:10/25/2024 08:48 AM Department of Family Medicine [facility] Patient Care team information Care Team Personnel Name: MD Ti, Leroy Duke Position: Physician - Family Med Member Role: Lifetime Relationship Address: [address] [place] [address] Name: WADE Roa, Genesis White Position: Physician Asst Exmpt - Family Med Member Role: Primary Care Provider Address: [address] [place] [address] [place] Care Team Related Persons Name: TAM JEAN Name: TAM JEAN"
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
--- OUTSIDE RECORDS SUMMARY | 2024-11-09 09:45 | External Medical Summary | Continuity of Care Document ---
Author Name Unknown Organization [facility] [address] Address [address] [place], [place] [id number] Care Team Providers [employer] Architect Name Role Phone CrispinGenesis Primary Care Physician [phone] [id number] Date(s): 10/13/24 - 10/13/24 [facility] [address] [facility] [address] [place], [place] [phone] Encounter Diagnosis Rheumatoid arthritis without rheumatoid factor, multiple sites(Final) - Discharge Disposition: Home or Self Care Attending Physician: WADE Vazquez Ethan Eric Referring Physician: WADE Vazquez Ethan Eric Allergies, Adverse Reactions, Alerts Substance Criticality Severity Reaction Reaction Severity Status nadolol tired all the time A ctive amitriptyline 1 extremely tired Active topiramate mental fuzzines s; didn't help migraines [...] chest pain Active lamoTRIgine excessive tearfulness Active Plaquenil skin color changes A ctive 1at just 10 mg qhs 2MSG, yeast [...] 3, OR MEDICATION OF THE DAY., Pharmacy: [id number] Start Date: 10/10/23 Status: Ordered Augmentin 875 mg-125 mg oral tablet Start: 07/27/24 4:46:00 PM EDT, amoxicillin 1 tab, PO, q12h, Disp# 14, [id number] Start Date: 07/27/24 Stop Date: 08/03/24 [...] Refills: 3, with food. avoid sun., Pharmacy: [id number] Start Date: 03/17/24 Status: Ordered FLUoxetine 20 mg oral capsule Start: 10/22/23 1:48:00 PM EST, See Instructions, Disp# 90 cap, Refills: 4, TAKE1 CAPSULES BY MOUTH, Pharmacy: [id number] Start Date: 10/22/23 Status: Ordered folic acid 1 mg oral tablet Start: 11/27/20 9:26:00 AM EST, 1 tab, PO, Daily Start Date: 11/27/20 Status: Ordered hydroCHLOROthiazide 12.5 mg oral capsule Start: 03/18/24 9:54:00 PM EDT, 1 cap, PO, Daily, Disp# 90 cap, Refills: 3, Pharmacy: [id number] Start Date: 03/18/24 Status: Ordered losartan 50 mg oral tablet Start: 08/02/24 12:10:00 PM EDT, 1 tab, PO, bid, Disp# 180 tab, Refills: 1, Pharmacy: [id number] Start Date: 08/02/24 Status: Ordered Lotrisone 1%-0.05% topical cream Start: 10/22/23 1:57:00 PM EST, 1 appl, topical, bid, Disp# 15 g, Refills: 1, Mix with equal amounts of Aquaphor and apply BID Not to be used longer than 2 weeks, Pharmacy: [facility] #[id number] Start Date: 10/22/23 Status: Ordered methotrexate 1 g injection Start: 01/19/20 7:43:00 AM EST, 50 mg/2ml, subQ, q7days Start Date: 01/19/20 Status: Ordered MetroCream 0.75% topical cream Start: 03/17/24 8:57:00 AM EDT, 1 appl, topical, bid, Disp# 45 g, Refills: 5, to face., 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 No opaque foreign body 16best corrected visual acuities: OD 20/25-1 OS: 20/25-2 distance applanation tonometry was OD: 16 mmHg OS: 14 mmHg at 12:15 17Eye exam with [facility]: macular OCT 18Migraine botox injection 191. The uterus is [...] per colonoscopy report 29MN 30ovaries left in. Results Laboratory List Name Date Complete Blood Count w Differential (CBC ,DIFFH) 10/13/24 Comprehensive Metabolic Panel (COMP META B PANEL) 10/13/24 Request to FAX Report (First Location) ( ACC NO TO BE FAXED) 10/13/24 Most recent to oldest [Reference Range]: 1 eGFR CKD-EPI [>60 mL/min/1.73 m2] 78 mL/ min/1.73 m2 1 (10/13/24 12:42 PM) Estimated CrCl 73.19 mL/min (10/13/24 1:11 PM) Phone No [phone] (10/13/24 12:42 PM) Faxed on: 10/14/24 08:17 (10/13/24 12:42 PM) MPV [9.0-12.2 fL] 12.3 fL *HI* (10/13/24 12:42 PM) Immature Gran% 0.1 % (10/13/24 12:42 PM) Neut% 62.4 % (10/13/24 12:42 PM) Lymph% 28.5 % (10/13/24 12:42 PM) Assumption% 6.5 % (10/13/24 12:42 PM) Baso% 1.0 % (10/13/24 12:42 PM) Eos% 1.5 % (10/13/24 12:42 PM) Immat Gran, Abs [0-0.4 K/uL] 0.01 K/uL (10/13/24 12:42 PM) Neut, Abs [2.0-7.7 K/uL] 4.24 K/uL (10/13/24 12:42 PM) Lymph, Abs [1.0-3.4 K/uL] 1.94 K/uL (10/13/24 12:42 PM) Assumption, Abs [0-1.0 K/uL] 0.44 K/uL (10/13/24 12:42 PM) Baso, Abs [0-0.1 K/uL] 0.07 K/uL (10/13/24 12:42 PM) Eos, Abs [0-0.5 K/uL] 0.10 K/uL (10/13/24 12:42 PM) Type of Diff: AUTO *Unknown* (10/13/24 12:42 PM) RDW [11.5-14.2 %] 12.6 % (10/13/24 12:42 PM) Anion Gap [5-14 mmol/L] 11 mmol/L (10/13/24 12:42 PM) Alb [3.5-5.0 g/dL] 4.3 g/dL (10/13/24 12:42 PM) Alk Phos [38-126 unit/L] 52 unit/L (10/13/24 12:42 PM) ALT [<35 unit/L] 24 unit/L (10/13/24:42 PM) AST [15-46 unit/L] 24 unit/L (10/13/24:42 PM) BUN [7-20 mg/dL] 19 mg/dL (10/13/24:42 PM) Ca [8.4-10.2 mg/dL] 9.4 mg/dL (10/13/24:42 PM) Cl- [96-107 mmol/L] 104 mmol/L (10/13/24:42 PM) HCO3 [22-30 mmol/L] 25 mmol/L (10/13/24:42 PM) Cret [0.60-1.00 mg/dL] 0.85 mg/dL (10/13/24:42 PM) Glu [74-106 mg/dL] 95 mg/dL (10/13/24:42 PM) Hct [35-44 %] 43.3 % (10/13/24: PM) Hgb [11.7-15.0 g/dL] 14.4 g/dL (10/13/24:42 PM) K [3.5-5.1 mmol/L] 4.6 mmol/L (10/13/24: PM) MCH [28-33 pg] 31.7 pg (10/13/24: PM) MCHC [32-36 g/dL] 33.3 g/dL (10/13/24:42 PM) MCV [81-96 fL] 95.4 fL (10/13/24:42 PM) Na [137-145 mmol/L] 140 mmol/L (10/13/24: PM) Plts [150-350 K/uL] 213 K/uL (10/13/24:42 PM) RBC [3.90-5.00 M/uL] 4.54 M/uL (10/13/24:42 PM) T Bili [0.2-1.3 mg/dL] 0.5 mg/dL (10/13/24:42 PM) Prot [6.3-8.2 g/dL] 7.1 g/dL (11/20/24 12:42 PM) WBC [4.0-10.4 K/uL] 6.80 K/uL (10/13/24 12:42 PM) 1Result Comment: Testing Performed By: Dept of Pathology [facility] [address], [address] [place] [address] 2Result Comment: Testing Performed By: Dept of Pathology [facility] [address], [address] [facility] [place] [address] Social History Social History Type Response Smoking Status Never smoked cigaret connor Sex Female Sex Representation Female (finding) Patient Care team information Care Team Personnel Name: MD Ti, Leroy Duke Position: Physician - Family Med Member Role: Lifetime Relationship Address: [address] [place] [address] [place] Name: WADE Roa, Genesis White Position: Physician Asst Exmpt - Family Med Member Role: Primary Care Provider Address: [address] [place] [address] [place] Care Team Related Persons Name: TAM JEAN Name: TAM JEAN
[2024-11-09] MEDS: TRANEXAMIC ACID 1,000 MG **IV Intra-op IV SCH (09:47)
[2024-11-09] MEDS: ROPIV 0.5% 246mg, Ketorolac 30mg, EPINEPHrine 0.5mg in NSS INFIL SCH (10:33)
[2024-11-09] MEDS: BUPIVACAINE 0.5 % 5 MG/1 ML MPF 30ML VIAL ONE (10:35)
[2024-11-09] MEDS: ORTHO JOINT ANESTHETIC ONE (10:35)
[2024-11-09] MEDS: LIDOCAINE 1%/EPINEPHRINE 1:100,000 50 ML VIAL ONE (10:35)
--- NOTE | 2024-11-09 10:59 | Post Operative Brief Note ---
Immediate Post Op Note Date of Surgery November 09, 2024 Pre & Post Diagnosis Operation Date: 11/09/24 07:00 Pre-Op Diagnosis: Left Shoulder Osteoarthritis, Left Acromioclavicular Joint Arthralgia Post-Op Diagnosis: Left Shoulder Osteoarthritis, Left Acromioclavicular Joint Arthralgia I identified the patient and participated in the time-out.: Yes Procedure Operation Date: 11/09/24 07:00 Actual Procedures p Left Total Shoulder Arthroplasty, Distal Clavicle Excision(Left) - Maycol Christensen MD Surgeon Maycol Christensen MD Residential Living Assistant MARYCARMEN Tamayo (No fellow avail) Estimated Blood Loss 75 Findings Consistent with Post-Op Diagnosis Fluids 1000 cc Specimens Left humeral head, distal clavicle, Long Head biceps for pathology Anesthesia Type General Regional Complications none
--- NOTE | 2024-11-09 11:00 | Operative Report ---
Post Operative Report Pre & Post Diagnosis Operation Date: 11/09/24 07:00 Pre-Op Diagnosis: Left Shoulder Osteoarthritis, Left Acromioclavicular Joint Osteoarthritis Post-Op Diagnosis: Left Shoulder Osteoarthritis, Left Acromioclavicular Joint Osteoarthritis I identified the patient and participated in the time-out.: Yes Procedure Operation Date: 11/09/24 07:00 Actual Procedures p Left Total Shoulder Arthroplasty, Distal Clavicle Excision(Left) - Maycol Christensen MD Surgeon Maycol Christensen MD Sweatband Cutting Machine Operator MARYCARMEN Tamayo (No fellow avail) Estimated Blood Loss 75 Findings See Below The left shoulder was then examined under anesthesia and it exhibited: Forward flexion and abduction to 150 & 145 respectively; external rotation 15; internal rotation 15. Following surgery ROM was Forward flexion and abduction to 165; external rotation 35; internal rotation 25. Fluids 1000 cc Specimens Left: humeral head, distal clavicle, Long Head biceps for pathology Anesthesia Type General Regional Complications none Indications Patient is a 59-year-old female who left shoulder OA, AC joint OA and has pain and decreased function. I recommended the patient undergo a left total shoulder arthroplasty and distal clavicle excision. The patient understands the risks of the operation including bleeding, infection, re-operation, damage to nerves and arteries, continued shoulder pain, shoulder stiffness, infection, and/or loosening of the components requiring revision surgery. The patient also understands the risks of heart attack, stroke, pulmonary embolus, and . The patient wished to proceed and the consent form was signed. Description of Procedure IMPLANTS: 1) Univers VaultLock Glenoid, Small (Arthrex) 2) Eclipse Trunion 43, Shoulder Implant 3) Eclipse Cage Screw, Medium 4) Eclipse Humeral Head 43/18, Shoulder implant 5) 2.6mm FiberTak with Labral tape x 3 (Arthrex) 6) 3.9 mm Biocomposite SwiveLock x 2 M WADE Vera is assisting with positioning, retracting, and closure due to fellow not available. PROCEDURE: The patient was taken to the Operating Room and placed in the beach-chair position after administration of an interscalene block and general anesthesia. 2 g of intravenous Ancef were administered. The left shoulder was then prepped and draped in the standard sterile fashion. Sequential compression devices were placed on the legs. The multidisciplinary time-out identified the patient and th e left shoulder as the correct shoulder. First, the deltopectoral incision was anesthetized with 15 cc of the joint cocktail. Sharp dissection was carried down to the deltopectoral interval. The cephalic vein was identified and protected laterally. Blunt dissection was performed to separate the deltoid from the rotator cuff. The clavipectoral fascia was then incised and a self-retaining shoulder retractor was placed beneath the conjoined tendon and deltoid muscle, exposing the subscapularis tendon. The biceps tendon was identified in its groove and had degeneration and fluid. The biceps tendon was unroofed from its groove, and the rotator interval was split to the base of the coracoid. The Pectoralis Major tendon was released approximately 1-2 cm. The biceps and Pec were tagged with a #1 Vicryl. The biceps was released from the glenoid rim and near the pec. The 3 sisters were cauterized and the Subscapularis tendon was peeled off the humerus, exposing the humeral head as the arm was externally rotated. Traction sutures were placed in the Subscapularis with #2 FiberWire. Next, the humeral head was dislocated with the arm adducted, extended using a 90 degree Ha protecting the Supraspinatus and externally rotated and using Brown retractor to protect the deltoid and displace the humeral head anterior. A capsulotomy was carried down all the way around to the posterior aspect of the humeral head, taking care to stay on bone. We exposed the humeral osteophytes anterior, inferiorly. These osteophytes were removed with a rongeur to identify the medial calcar on the humeral neck. Next, using the Fixed angle cutting guide was placed and held with a guide pin to allow rotation so that the humeral osteotomy was performed in 30 degrees of retroversion using the guide that was pinned in place.The 43 Trunnion fit best and the pins were impacted to hold the guide in place. The chiller hand was used in the standard fashion to prepare for the Eclipse screw. A centralizer was placed and using the guide pin the length of the screw was measured. A protective cap was placed over top of the osteotomy site. The glenoid was exposed with a Batman retractor anteriorly, 90 degree Ha posterior superiorly, and Tornier retractor posteriorly displacing the humeral head posterior and inferior. Using the VIP aiming guide based on preoperative planning a guide pin was placed centrally. Then the glenoid was reamed to bleeding surface. The remaining superior osteophytes were removed with a r ongeur. The central pilot can router hole was created with the drill. The guide for the Univers VaultLock was placed in the standard fashion centered using the central pilot can router hole. Once it was seated in the proper position, the 6mm drill was used to create the superior hole and the drill was left in place to further stabilize the guide. The 3 inferior hole were placed using the 4.5 mm drill. The guide was removed and the glenoid broch was used to complete the glenoid preparation. The small trial fit well. Bone from the humeral head reaming was placed around the central peg in the standard fashion. Palacos cement was placed in the superior and inferior holes. The glenoid was placed in the standard fashion. After the cement had cured the glenoid was well secured. Our attention returned to the humeral head and the centralizer was placed followed by the Trunnion which was impacted into place in the standard fashion. The central screw was placed securing the Trunnion in place. Trial heads were placed and the [43/18] had excellent stability and 1+ translation anteriorly and posteriorly with good bounce back to the glenoid. Using the guide to avoid the Eclipse screw, 3 FiberTak anchors were placed for the medial row Subscapularis repair. The definitive humeral head was then impacted into place on the trunnion. Again, there was excellent stability and ROM forward flexion 165 degrees and Abduction 165 degrees. The Labral Tape from each anchor was passed through the Subscapularis tendon, where 1 suture from each anchor would later be placed in the lateral row. The FiberWire sutures from each anchor were also passed the Subscapularis tendon. The Lateral row anchors were drilled along the bicipital groove and the 3 Labral Tape, 1 from each anchor was placed in each lateral row anchor in the standard fashion. The FiberWire suture previously passed were then sequentially tied. The superior aspect of the subscapularis tendon was then closed with #2 FiberWire. The humeral head was no longer visible. The biceps was tenodesed to the pectoralis major tendon with #1 Vicryl. The pulsatile lavage was used to copiously irrigate the wound. The Cephalic vein was ligated with a silk tie, as there was a tear due to retraction. The deltopectoral interval was re- approximated with #1-Vicryl, the subcutaneous tissue was closed with 3-0 Vicryl, and the skin was closed with ZipeLine and shield. The wounds were dressed with 4x4's, ABD, and Foam tape. The sponge and needle count were correct. The patient was then transferred to the PACU in stable condition after application of an abduction sling. POST-OP INSTRUCTIONS: The patient will be admitted for observation. Remain in the sling with abduction pillow for 4 weeks and another 2 weeks without the pillow. Will work with PT/OT. Pain control with Tylenol, NSAIDs, and breakthrough narcotics. I attest to the content of the Intraoperative Record and any orders documented therein. Any exceptions are noted below.
[2024-11-09] MEDS ORDERED: SUGAMMADEX SODIUM 200 MG/2 ML VIAL IV ONE (11:11)
--- NOTE | 2024-11-09 12:22 | XRay Report ---
XR shoulder LT min 2V routine CLINICAL HISTORY: Post shoulder surgery COMPARISON: Left shoulder radiographs August 23, 2024. Left shoulder MRI October 07, 2024. FINDINGS: Alignment of the left shoulder arthroplasty is anatomic. There is no periprosthetic fractu re or unexpected radiopaque foreign body. There is mild elevation of the left hemidiaphragm. Left bas ilar opacity favors atelectasis. IMPRESSION: Expected findings following left shoulder arthroplasty. ACT 112: Negative or not required by law. Electronically signed by: Christos Cook M.D. 11/09/2024 12:20 PM
[2024-11-09] MEDS ORDERED: bisacodyL 10 MG SUPP PR PRN (12:33)
[2024-11-09] MEDS ORDERED: HYDROmorphone INJ 0.5 MG/0.5 ML SYR IV PRN (12:33)
[2024-11-09] MEDS ORDERED: oxyCODONE HCL IR 5 MG TAB (IMMEDIATE RELEASE) PO PRN (12:33)
[2024-11-09] MEDS ORDERED: METOCLOPRAMIDE HCL INJ 5 MG/ML 2 ML VIAL IV PRN (12:33)
[2024-11-09] MEDS ORDERED: NALOXONE HCL 0.4 MG/1 ML VIAL/CARP IV PRN (12:33)
[2024-11-09] MEDS ORDERED: diphenhydrAMINE Capsule 25 MG CAP PO PRN (12:33)
[2024-11-09] MEDS ORDERED: CLOTRIMAZOLE/BETAMETHASONE CR 15 GM TUBE EXT PRN (12:33)
[2024-11-09] MEDS ORDERED: ONDANSETRON INJ 2 MG/ML 2 ML VIAL IV PRN (12:33)
[2024-11-09] MEDS ORDERED: MAGNESIUM HYDROXIDE SUSP 30 ML UDC PO PRN (12:33)
[2024-11-09] MEDS ORDERED: ONDANSETRON 4 MG OD TAB PO PRN (12:33)
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
[2024-11-09] MEDS ORDERED: ARTIFICIAL TEARS OP PRN (12:53)
[2024-11-09] MEDS: ALENDRONATE SODIUM 70 MG TAB PO SCH (13:37)
--- NOTE | 2024-11-09 14:51 | Anesthesiology Progress Note ---
Date of Service November 09, 2024 Anesthesia Post Procedure Vital Signs Vital Signs: Temp Pulse Pulse Pulse Resp BP Pulse Ox 11/09/24 14:33 36.4 C L 84 16 108/70 96 11/09/24 13:22 36.7 C 80 16 107/73 97 11/09/24 12:50 36.3 C L 72 16 104/67 98 11/09/24 12:41 11/09/24 12:20 36.6 C 77 16 103/69 99 11/09/24 12:05 78 14 114/72 97 11/09/24 11:55 36.5 C 76 16 108/70 98 11/09/24 11:45 77 12 103/67 97 11/09/24 11:35 83 14 112/65 97 11/09/24 11:27 36 C L 81 20 129/73 96 11/09/24 05:40 36.7 C 63 20 122/89 96 O2 Del Method 11/09/24 14:33 Room Air 11/09/24 13:22 Room Air 11/09/24 12:50 Room Air 11/09/24 12:41 Room Air 11/09/24 12:20 Room Air 11/09/24 12:05 Room Air 11/09/24 11:55 Room Air 11/09/24 11:45 Room Air 11/09/24 11:35 Room Air 11/09/24 11:27 Room Air 11/09/24 05:40 Room Air Pain Intensity Left Shoulder: Pain Intensity: 6 Transfer of Care Handoff Completed per policy Notes Mental Status: alert / awake / arousable Patient Amnestic to Procedure: Yes Nausea / Vomiting: adequately controlled Pain: adequately controlled Airway Patency, RR, SpO2: stable & adequate BP & HR: stable & adequate Hydration State: stable & adequate Anesthetic Complications: no major complications apparent and Pt Satisfied with anesthetic care
[2024-11-09] MEDS: Scopolamine CHECK PATCH PLACEMENT SCH (16:49)
[2024-11-09] MEDS: FERROUS GLUCONATE 324 MG TAB PO SCH (16:51)
[2024-11-09] MEDS: ASCORBIC ACID 500 MG TAB PO SCH (16:51)
--- NOTE | 2024-11-09 17:29 | Orthopedic Progress Note ---
Date of Service November 09, 2024 Assessment & Plan (1) Osteoarthritis of left shoulder: Plan: POD #0 s/p L TSA, distal clavicle excision, doing as well as expected. Resume diet. No lifting more than coffee cup LUE. OOB to chair. Continue pain control. Check labs tomorrow. DVT prophylaxis: TEDs 3 weeks, foot pumps while in hospital, ASA 81 mg BID for 3 weeks. PT/OT. D/C planning. Dressing to be changed POD 1-3 to Silverlon type dressing. Present on Admission?: Yes Admission and Anticipated Discharge Date Admission Date: November 09, 2024 Subjective My shoulder has not felt this pain free in years. Physical Exam Physical Exam: LLE: BCR < 2 sec. Sensation to light touch intact distally. Motor to: M/R/U/AIN/PIN intact. Dressing is clean, dry, intact. Sling in place. Sitting comfotably in a chair.. Results & Data Vital Signs (Past 12 Hours) Vital Signs Temp Pulse Pulse Pulse Resp BP Pulse Ox 11/09/24 15:15 36.4 C L 80 16 115/74 96 11/09/24 14:33 36.4 C L 84 16 108/70 96 11/09/24 13:22 36.7 C 80 16 107/73 97 11/09/24 12:50 36.3 C L 72 16 104/67 98 11/09/24 12:41 11/09/24 12:20 36.6 C 77 16 103/69 99 11/09/24 12:05 78 14 114/72 97 11/09/24 11:55 36.5 C 76 16 108/70 98 11/09/24 11:45 77 12 103/67 97 11/09/24 11:35 83 14 112/65 97 11/09/24 11:27 36 C L 81 20 129/73 96 11/09/24 05:40 36.7 C 63 20 122/89 96 O2 Del Method 11/09/24 15:15 Room Air 11/09/24 14:33 Room Air 11/09/24 13:22 Room Air 11/09/24 12:50 Room Air 11/09/24 12:41 Room Air 11/09/24 12:20 Room Air 11/09/24 12:05 Room Air 11/09/24 11:55 Room Air 11/09/24 11:45 Room Air 11/09/24 11:35 Room Air 11/09/24 11:27 Room Air 11/09/24 05:40 Room Air Diagnostic Findings Impressions Shoulder X-Ray 11/09/24 11:43 XR shoulder LT min 2V routine CLINICAL HISTORY: Post shoulder surgery COMPARISON: Left shoulder radiographs August 23, 2024. Left shoulder MRI October 07, 2024. FINDINGS: Alignment of the left shoulder arthroplasty is anatomic. There is no periprosthetic fracture or unexpected radiopaque foreign body. There is mild elevation of the left hemidiaphragm. Left basilar opacity favors atelectasis. IMPRESSION: Expected findings following left shoulder arthroplasty. ACT 112: Negative or not required by law. Electronically signed by: Christos Cook M.D. 11/09/2024 12:20 PM
[2024-11-09 20:03] VITALS: RESP 18
[2024-11-09] MEDS: SENNA 8.6 MG TAB PO SCH (20:45)
[2024-11-09] MEDS: DOCUSATE SODIUM 100 MG CAP PO SCH (20:45)
[2024-11-09] MEDS: CYANOCOBALAMIN (B-12) 500 MCG TABLET PO SCH (20:46)
[2024-11-09] MEDS: CETIRIZINE HCL 10 MG TABLET PO SCH (20:46)
[2024-11-09] MEDS: ASPIRIN 81 MG ECTAB PO SCH (20:46)
[2024-11-09] MEDS: DOXYCYCLINE HYCLATE 50 MG CAP PO SCH (20:46)
[2024-11-09] MEDS: MAGNESIUM OXIDE 400 MG TAB PO SCH (20:47)
[2024-11-09] MEDS ORDERED: LOSARTAN POTASSIUM 50 MG TAB PO SCH (21:00)
[2024-11-10 03:00] VITALS: TEMP 98.1
[2024-11-10 06:14] LABS: Basophils # (auto) 0.02 K/uL (0.00-0.20); Basophils % (auto) 0.3 %; Eosinophils # (auto) 0.03 K/uL (0.00-0.50); Eosinophils % (auto) 0.4 %; Hematocrit (blood only) 33.7 % (37.0-47.0); Hemoglobin 11.3 g/dl (12.0-16.0); Immature Granulocytes # (auto) 0.02 K/uL (0.01-0.20); Immature Granulocytes % (auto) 0.3 %; Lymphocytes % (auto) 23.5 %; Mean Corpuscular Hgb Conc 33.5 g/dL (32.0-36.0); Mean Corpuscular Volume 95.5 fL (80.0-100.0); Mean Platelet Volume 11.5 fL (9.4-12.4); Monocytes # (auto) 0.89 K/uL (0.11-0.59); Monocytes % (auto) 11.6 %; Neutrophils # (auto) 4.91 K/uL (1.40-6.50); Neutrophils % (auto) 63.9 %; Platelet Count 181 K/uL (130-400); RDW Coefficient of Variation 13.4 % (11.5-14.5); RDW Standard Deviation 47.3 fL (36.4-46.3); Red Blood Count 3.53 M/uL (4.20-5.40); White Blood Count 7.67 K/ul (4.8-10.8)
[2024-11-10 06:34] LABS: BUN Creatinine Ratio 19.7 (10-20); Calcium 8.2 mg/dl (8.6-10.3); Creatinine Clr Calc Pharmacy 79.3 ml/min; Potassium 4.2 mmol/L (3.5-5.1)
[2024-11-10 07:09] VITALS: BP 121/76; PULSE 71; O2SAT 94
[2024-11-10] MEDS: FLUoxetine HCL 20 MG CAP PO SCH (07:41)
[2024-11-10] MEDS: FOLIC ACID 1 MG TAB PO SCH (07:42)
[2024-11-10] MEDS: CHOLECALCIFEROL 125 MCG (5,000 UNITS) TAB PO SCH (07:42)
[2024-11-10] MEDS: MULTIVITAMIN TAB PO SCH (07:42)
[2024-11-10] MEDS: metroNIDAZOLE 0.75% TOPICAL GEL 45 GM TUBE TOP SCH (07:45)
[2024-11-10] MEDS: FLUTICASONE PROPIONATE NA SPR 16 GM BTL SCH (07:54)
--- NOTE | 2024-11-10 08:11 | Orthopedic Progress Note ---
Date of Service November 10, 2024 Assessment & Plan (1) Osteoarthritis of left shoulder: Plan: POD #1 s/p L TSA, distal clavicle excision, doing as well as expected, block still in effect. Resume diet. No lifting more than coffee cup LUE. OOB to chair. Sling with Abduction pillow 4 weeks. Continue pain control. DVT prophylaxis: TEDs 3 weeks, foot pumps while in hospital, ASA 81 mg BID for 3 weeks. PT/OT. D/C planning. Dressing changed to Silverlon dressing. Admission and Anticipated Discharge Date Admission Date: November 09, 2024 Subjective Doing well. Physical Exam Physical Exam: LLE: BCR < 2 sec. Sensation to light touch tingling thumb and index finger, otherwise intact distally. Motor to: M/R/U/AIN/PIN intact, Musculocutaneous absent. Incision is clean, dry, intact. Sling in place. + Bruising upper arm. Results & Data Vital Signs (Past 12 Hours) Vital Signs Temp Pulse Resp BP Pulse Ox O2 Del Method 11/10/24 07:06 36.7 C 71 18 121/76 94 Room Air 11/10/24 03:00 36.7 C 69 18 106/63 95 Room Air 11/09/24 23:00 37.1 C 75 18 99/64 L 94 Room Air Laboratory Results Laboratory Results WBC 7.67 K/ul (4.8-10.8) 11/10/24 05:40 RBC 3.53 M/uL (4.20-5.40) L 11/10/24 05:40 Hgb 11.3 g/dl (12.0-16.0) L 11/10/24 05:40 Hct 33.7 % (37.0-47.0) L 11/10/24 05:40 MCV 95.5 fL (80.0-100.0) 11/10/24 05:40 MCH 32.0 pg (25.0-34.0) 11/10/24 05:40 MCHC 33.5 g/dL (32.0-36.0) 11/10/24 05:40 RDW Std Deviation 47.3 fL (36.4-46.3) H 11/10/24 05:40 RDW Coeff of Erwin 13.4 % (11.5-14.5) 11/10/24 05:40 Plt Count 181 K/uL (130-400) 11/10/24 05:40 MPV 11.5 fL (9.4-12.4) 11/10/24 05:40 Immature Gran % (Auto) 0.3 % 11/10/24 05:40 Neut % (Auto) 63.9 % 11/10/24 05:40 Lymph % (Auto) 23.5 % 11/10/24 05:40 [place] % (Auto) 11.6 % 11/10/24 05:40 Eos % (Auto) 0.4 % 11/10/24 05:40 Baso % (Auto) 0.3 % 11/10/24 05:40 Neut # (Auto) 4.91 K/uL (1.40-6.50) 11/10/24 05:40 Lymph # (Auto) 1.80 K/uL (1.20-3.40) 11/10/24 05:40 [place] # (Auto) 0.89 K/uL (0.11-0.59) H 11/10/24 05:40 Eos # (Auto) 0.03 K/uL (0.00-0.50) 11/10/24 05:40 Baso # (Auto) 0.02 K/uL (0.00-0.20) 11/10/24 05:40 Immature Gran # (Auto) 0.02 K/uL (0.01-0.20) 11/10/24 05:40 Sodium 138 mmol/L (136-145) 11/10/24 05:40 Potassium 4.2 mmol/L (3.5-5.1) 11/10/24 05:40 Chloride 107 mmol/L (98-107) 11/10/24 05:40 Carbon Dioxide 26 mmol/L (21-32) 11/10/24 05:40 Anion Gap 5 (3-11) 11/10/24 05:40 BUN 15 mg/dl (6-23) 11/10/24 05:40 Creatinine 0.76 mg/dl (0.6-1.2) 11/10/24 05:40 Est Cr Clr Drug Dosing 79.3 ml/min 11/10/24 05:40 eGFR 89.09 11/10/24 05:40 BUN/Creatinine Ratio 19.7 (10-20) 11/10/24 05:40 Glucose 108 mg/dl (70-99(Fasting)) H 11/10/24 05:40 Calcium 8.2 mg/dl (8.6-10.3) L 11/10/24 05:40 Impressions Shoulder X-Ray 11/09/24 11:43 XR shoulder LT min 2V routine CLINICAL HISTORY: Post shoulder surgery COMPARISON: Left shoulder radiographs August 23, 2024. Left shoulder MRI October 07, 2024. FINDINGS: Alignment of the left shoulder arthroplasty is anatomic. There is no periprosthetic fracture or unexpected radiopaque foreign body. There is mild elevation of the left hemidiaphragm. Left basilar opacity favors atelectasis. IMPRESSION: Expected findings following left shoulder arthroplasty. ACT 112: Negative or not required by law. Electronically signed by: Christos Cook M.D. 11/09/2024 12:20 PM
[2024-11-10] MEDS ORDERED: TURMERIC TURMERIC EXT PEPPER PO SCH (09:00)
--- NOTE | 2024-11-10 09:26 | Hospitalist Progress Note ---
Date of Service November 10, 2024 Assessment & Plan (1) Status post reverse arthroplasty of left shoulder: Plan: Left total shoulder arthroplasty and distal clavicle excision with Dr. Christensen on 11/09/2024 - Perioperative antibiotics, fluids, pain control, and DVT PPx per the primary team - Cefazolin given perioperatively - Postop left shoulder x-ray revealed expected postoperative findings - Acute blood loss anemia secondary to surgery. Hgb stable at 11.3, no ind ication for blood transfusion at this time (2) HTN (hypertension): Plan: Blood pressures were initially low-normal postop, but have returned to normal and remain stable - Resumed/continue losartan 50 mg BID (3) Rosacea: Plan: Continue doxycycline 50 mg HS for chronic suppressive therapy for rosacea Plan Gluten-free diet as tolerated VTE PPx: TEDs 3 weeks postop, foot pumps while in hospital, ASA 81 mg BID for 3 weeks postop Patient was discharged prior to being seen by hospitalist service. Chart reviewed, patient dose appear stable for discharge. Thank you for allowing us to participate in the care of this patient, please reach out any questions or concerns. Admission and Anticipated Discharge Date Admission Date: November 09, 2024 Supervising Physician Co-Signing Physician Notes PA Supervision Note: I did not personally see or examine the patient today, but I verified all dietz points of MARGARITA Gonzalez's assessment and plan with the following exceptions/additions: None Subjective Patient was discharged prior to being seen by hospitalist. Physical Exam Physical Exam: Patient was discharged prior to being seen by hospitalist. Results & Data Results & Data Vital Signs (Past 12 Hours) Vital Signs Temp Pulse Resp BP Pulse Ox O2 Del Method 11/10/24 07:06 98.1 F 71 18 121/76 94 Room Air 11/10/24 03:00 98.1 F 69 18 106/63 95 Room Air 11/09/24 23:00 98.8 F 75 18 99/64 L 94 Room Air Laboratory Results Reviewed CBC Reviewed BMP PG Care Time/CCT Total # of Minutes Spent Total Time Spent with Patient: Total time spent is greater than 50% in coordination of care (as documented) at patient's floor/unit and/or counseling patient: Coding Level of Care Code None Diagnoses Status post reverse arthroplasty of left shoulder Z96.612 HTN (hypertension) I10 Rosacea L71.9
--- NOTE | 2024-11-10 09:45 | Discharge Summary ---
Date of Service November 10, 2024 Admission HPI Per Admitting Provider This 59-year-old female with a history of rosacea, gluten allergy, hypertension, and osteopenia, was admitted yesterday through same-day surgery for a reverse total shoulder arthroplasty. She underwent successful and uneventful total shoulder arthroplasty with distal clavicle excision and was transferred to the orthopedic floor after uneventful recovery. Admission Exam (Per Admitting) Constitutional General: Well-developed, well-nourished, middle-aged female, in no acute distress. Sitting on the bed. Alert and oriented Skin: Warm and dry with good turgor. No rashes. Postsurgical dressing is in place on the left shoulder. No active bleeding. Musculoskeletal: The patient has intact motor function of her fingers and wrist. Elbow and shoulder motion is limited secondary to her surgery and post residual block. Neurologic: Gross sensation is intact across the digits and hand by soft touch. Peripheral pulses are 2+. Specialty Data Orthopedic The patient did well overnight on 11/09 and had no complaints. Her pain was managed with oral and IV medication. She was reevaluated on the morning of 11/10 and was found to be doing well. She was able to participate in PT and OT. She desired discharge to home. She already has outpatient physical therapy established in our office for tomorrow 11/11. The patient's dressing was changed to a Silverlon dressing. Medication prescription was sent to her pharmacy. Written discharge instructions were provided. Call with any other concerns. Discharge Data Consultations 11/03/24 16:16 Consult Hospitalist Routine Procedures Performed Operation Date: 11/09/24 07:00 Actual Procedures p Left Total Shoulder Arthroplasty, Distal Clavicle Excision(Left) - Maycol Christensen MD Hospital Course (1) Osteoarthritis of left shoulder: No lifting more than coffee cup LUE. Sling with Abduction pillow 4 weeks. DVT prophylaxis: TEDs 3 weeks, ASA 81 mg BID for 3 weeks. Continue PT Follow-up in the office in 2 weeks as scheduled for Zipline removal Dressing changed to Silverlon dressing.
[2024-11-10] MEDS ORDERED: ADVANCED PROBIOTIC 625 MG CAPSULE PO SCH (11:30)
== END 2024-11-10 11:05 | disposition home or self-care (01) ==
LOC: ASU 04:59 → 3E 04:59
DX: Z86.16 Personal history of COVID-19; M19.012 Primary osteoarthritis, left shoulder; J45.909 Unspecified asthma, uncomplicated; L71.9 Rosacea, unspecified; I10 Essential (primary) hypertension; Z91.048 Other nonmedicinal substance allergy status; Z91.040 Latex allergy status; F41.9 Anxiety disorder, unspecified; Z88.8 Allergy status to other drugs, medicaments and biological substances; M06.9 Rheumatoid arthritis, unspecified; Z79.899 Other long term (current) drug therapy